=== PATIENT | female | born 1980 ===

== ENCOUNTER 2024-03-12 13:38 | Emergency (ER) | payer OTHER ==
[~2024-03-12] VITALS: Ht 172.7 cm; Wt 130.2 kg
[2024-03-12 15:00] VITALS: BP 150/96; PULSE 88; RESP 18; TEMP 98; O2SAT 98
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
[2024-03-12] MEDS: HYDROcodone-ACET 7.5/325MG TAB PO ONE (16:23)
[2024-03-12] MEDS ORDERED: CYCL-839 PO (16:54)
[2024-03-12] MEDS ORDERED: IBUP-1456 PO (16:54)
== END 2024-03-12 16:56 | disposition home or self-care (01) ==
LOC: ER 13:38
DX: R07.89 Other chest pain (principal); M54.2 Cervicalgia; R10.9 Unspecified abdominal pain; M79.18 Myalgia, other site
CPT/HCPCS: 71250; 72040; 74176